=== PATIENT | female | born 1955 | race Caucasian/White ===

== ENCOUNTER 2024-01-27 05:55 | Emergency (ER) | payer MEDICARE, SELFPAY ==
[2024-01-27 05:55] VITALS: BMI 24.2
[2024-01-27 05:57] VITALS: BP 141/84
--- NOTE | 2024-01-27 06:43 | ED.GENMED ---
History of Present Illness
General
Chief Complaint: Musculo-Skeletal Complaint
Source: patient
Exam Limitations: none
Time Seen by Provider: 01/27/24 06:23
Travel History
Have you had any contact with someone who has COVID-19?: No
Do you have any symptoms of coronavirus? Fever > 100 degrees, chills, cough, shortness of breath, sore throat, loss of taste or smell, muscle aches, or headache?: No
History of Present Illness
History of Present Illness:
68-year-old female who presents with pain in the neck radiating down into the right shoulder and right forearm. Patient states that started Sunday. The pain has got worse. Initially it was only with sitting. The patient states she tried to lay
down most of yesterday to rest it. The pain is now much more severe with sitting. No trauma. She has a history of lumbar radiculopathy but had recently had an injection which improved her symptoms. Patient did try taking a tramadol at home and
vomited. She says the pain is mild at this point. No motor weakness. No numbness or tingling.
Past History
Past History
ED Past Medical History: Arrthythmia, HTN and Other (Lumbar radiculopathy)
Social History
Tobacco: Non-smoker
Personal:
Phy Exam
Physical Exam
Physical Exam:
CONSTITUTIONAL Vital signs reviewed, Patient alert and oriented to person, place and time. Well-appearing
HEAD atraumatic, normocephalic.
EYES eyelids normal to inspection, Extraocular muscles intact, Conjunctiva normal, Sclera normal.
NECK normal range of motion, Trachea midline, no jugular venous distention. No midline tenderness. No trapezius tenderness. No paraspinal
RESP no respiratory distress
BACK No obvious deformities
UPPER EXTREMITY Gross Range of motion normal, gross motor strength normal
LOWER EXTREMITY Gross range of motion normal, Gross motor strength normal
NEURO Speech normal, No focal motor deficits include, Summers coma scale 15, Memory normal, Cranial Nerves intact to screening exam. Negative Judy's. No pronator drift
SKIN Skin warm, dry, and normal in color.
PSYCHIATRIC Patient oriented to person place and time, Normal affect.
Course
Orders/Labs/Results
Orders:
Orders
01/27/24 06:43
CR Cervical Spine 2 or 3 Vw Urgent
Reason For Exam: pain with sitting up, pain in RUE
Vital Signs
Initial and Last Documented VS:
Initial Vital Signs
Temp Pulse Resp BP Pulse Ox
97.9 F 68 16 141/84 98
01/27/24 05:57 01/27/24 05:57 01/27/24 05:57 01/27/24 05:57 01/27/24 05:57
Last Documented Vital Signs
Temp Pulse Resp BP Pulse Ox
97.9 F 68 16 141/84 98
01/27/24 05:57 01/27/24 05:57 01/27/24 05:57 01/27/24 05:57 01/27/24 05:57
MDM/Problems Addressed
MDM/Problems Addressed:
Cervical radiculopathy
*Radiology
Radiology exam reviewed: preliminary read by ED provider (Degenerative disease noted. No obvious lytic lesions)
*Pulse Oximetry
Patient hypoxic: no
*Critical Care Note
Total Time (30-74mins, 75-104mins- exclusive of procedures): Not Applicable
Data Reviewed
Prescriptions/Medications Considered But Not Given:
Consider steroids but patient like to await her evaluation by her physician on Sunday
Patient Management
Escalation/DeEscalation of care consider admission/obs:
Cervical radiculopathy noted with no evidence of upper motor neuron disease. Patient has an appoint with her branch service specialist on Sunday and would like to hold off on treatment. Cover with some pain control as needed
ED Attending Note
-
Portions of this chart may have been created with voice recognition software.� Occasional wrong word or��sound alike� substitutions may have occurred due to the inherent limitations of voice recognition software.
Discharge Plan
Departure
Patient Disposition: Home (Routine Discharge)
Date of Disposition: 01/27/24
Time of Disposition: 07:50
Patient with high blood pressure during this ER visit?: Yes
Discharge Problem:
Cervical radiculopathy
Instructions: Radiculopathy (DC), BLOOD PRESSURE
Prescriptions:
New
hydrocodone-acetaminophen 5-325 mg tablet
1 tab PO Q6H PRN (Reason: Pain) Qty: 12 0RF
No Action
diltiazem HCl 180 mg Capsule,Extended Release 24 Hr
180 mg PO DAILY
aspirin 81 mg Tablet,Delayed Release (Dr/Ec)
81 mg PO DAILY
ibuprofen [Motrin] 400 mg Tablet
400 mg PO Q6H PRN (Reason: pain)
ezetimibe 10 mg Tablet
10 mg PO DAILY
hydrochlorothiazide 12.5 mg Tablet
12.5 mg PO DAILY
biotin 2,500 mcg Capsule
2,500 mcg PO DAILY
Centrum Silver Women 8 mg iron-400 mcg-50 mcg Tablet
1 tab PO DAILY
Referrals:
Mikel Medina MD [Family Provider] -
Activity Restrictions/Additional Instructions:
Please see your physician on Sunday as planned. Return for motor weakness, difficulty breathing, fevers or any other concerns.
Interventions
Interventions:
*Risk Screen - Suicide Last Done: 01/27/24 05:57
*General Assessment Last Done: 01/27/24 05:57
*Neglect/Abuse Screening Last Done: 01/27/24 05:57
ED- Fall Risk Assessment Last Done: 01/27/24 06:28
*ED COVID-19 Vaccine History Last Done: 01/27/24 06:28
Discharge Date and Time
Print Language: GEORGIAN
[2024-01-27 08:12] VITALS: BP 140/80
== END 2024-01-27 08:13 | disposition home or self-care (01) ==
LOC: EMR 05:55
PROVIDERS: EMERGENCY PHYSICIAN Emergency Medicine; FAMILY PHYSICIAN Internal Medicine
DX: M54.12 Radiculopathy, cervical region (principal); I10 Essential (primary) hypertension
CPT/HCPCS: 99283; 72040

== ENCOUNTER → 2024-02-20 09:45 | Outpatient (REF) | payer MEDICARE, SELFPAY | LOC: WDC 09:45 | PROVIDERS: ATTENDING PHYSICIAN Obstetrics & Gynecology Gynecology; FAMILY PHYSICIAN Internal Medicine | DX: R92.2 Inconclusive mammogram (principal) | CPT/HCPCS: 76641 ==

== ENCOUNTER → 2024-07-24 14:01 | Outpatient (REF) | payer MEDICARE, SELFPAY | LOC: WDC 14:01 | PROVIDERS: ATTENDING PHYSICIAN Obstetrics & Gynecology Gynecology; FAMILY PHYSICIAN Internal Medicine | DX: Z12.31 Encounter for screening mammogram for malignant neoplasm of breast (principal) | CPT/HCPCS: 77063; 77067 ==

== ENCOUNTER 2024-08-01 03:02 | Inpatient (IN) | payer MEDICARE, SELFPAY ==
[2024-08-01] VITALS (13 sets, daily range): BP systolic 103–145; BP diastolic 70–96; BMI 23.1; BMI 22.8
[2024-08-01 00:54] LABS: % Basophils 0.9 % (0-2); % Immature Granulocytes 0.9 % (0-0.5); % Lymphocytes 46.8 % (20.5-51.1); % Neutrophils 39.4 % (42.2-75.2); Absolute Basophils 0.1 10^3/uL (0-0.2); Absolute Eosinophils 0.2 10^3/uL (0-0.7); Absolute Immature Granulocytes 0.1 10^3/uL (0-0.05); Absolute Lymphocytes 3.7 10^3/uL (1.2-3.4); Absolute Monocytes 0.7 10^3/uL (0.1-0.6); Absolute Neutrophils 3.2 10^3/uL (1.4-6.5); Hematocrit 39.4 % (37.0-47.0); Hemoglobin 13.3 g/dL (12.0-16.0); Mean Corp Hgb Conc. 33.8 g/dL (33.0-37.0); Mean Corpuscular Hgb 30.8 pg (27.0-31.0); Mean Corpuscular Volume 91.2 fL (81.0-99.0); Mean Platelet Volume 9.1 fL (7.4-10.4); Nucleated Red Blood Cells % 0 %; Platelet Count 301 10^3/uL (130-400); Red Blood Cell Count 4.32 10^6/uL (4.20-5.40); Red Cell Dist. Width 11.9 % (11.5-14.5)
--- NOTE | 2024-08-01 00:59 | ED.GENMED ---
History of Present Illness
General
Chief Complaint: Heart Rate Problem
Time Seen by Provider: 08/01/24 00:29
History of Present Illness
History of Present Illness:
Patient presents to the emergency department with palpitations. She has a history of atrial fibrillation. She had 1 episode about 10 years ago. She reports that she was cardioverted out of this. She is not maintained on anticoagulation. Denied
her palpitations started about an hour ago. She feels a heaviness in her chest like something is stuck in her throat. Denies any shortness of breath. Denies any leg swelling.
Past History
Past History
ED Past Medical History: Arrthythmia, HTN and Other (Lumbar radiculopathy)
Social History
Tobacco: Non-smoker
Personal:
Phy Exam
Physical Exam
Physical Exam:
GENERAL APPEARANCE: NAD, well developed/ well nourished
EYES lids/conjunctiva normal
EARS/NOSE/THROAT Mucous membranes moist, uvula midline without oral pharyngeal erythema, exudate or swelling
HEAD/NECK normocephalic atraumatic, neck is supple.
RESPIRATORY respiratory effort normal, speaks in full sentences, no accessory muscle use. Lungs clear to auscultation without rhonchi, wheezes, rales
CARDIAC irregular rate and rhythm. Tachycardic. No edema.
ABDOMINAL Soft, ND/NT.
MUSCLES/EXTREMITIES No abnormal range of motion, no swelling.
SKIN Warm, pink and dry. No rashes
NEUROLOGICAL Speech is clear and appropriate. Normal level of consciousness. 5/5 strength in all extremities.
PSYCH Normal mood and affect. Judgement/competence is appropriate
Course
Orders/Labs/Results
Orders:
Orders
08/01/24 00:27
Electrocardiogram (*1) Urgent
Reason for Study: Atrial Fibrillation
EKG- Treatment ONCE
08/01/24 00:30
Electrocardiogram (*1) Urgent
Reason for Study: Atrial Fibrillation
EKG- Treatment ONCE
08/01/24 00:43
Complete Blood Count/With Diff Urgent
Comprehensive Metabolic Panel Urgent
Troponin I Urgent
08/01/24 00:48
Diltiazem HCl [Cardizem] 15 mg IV NOW STA
CR Chest - 2 Views Urgent
Comment:
Reason For Exam: chest pressure
08/01/24 01:00
Diltiazem 125 mg/125 ml Nss [Cardizem] 125 mg in 125 ml IV PER PROTOCOL
Initial dose in mg/hr, then titrate:: 5
Titrate to keep:: Heart rate 80-100 bpm
Titrate by mg/hr:: 5 mg/hr
Frequency of titrations (minutes):: 15
Maximum dose in mg/hr:: 15
08/01/24 01:04
PTT Urgent
Prothrombin Time Urgent
08/01/24 01:15
Heparin 3,900 units IV NOW STA
Heparin 18277 Units/250 ml 25,000 units in 250 ml IV PER PROTOCOL
Weight to be used for heparin protocol in kilograms (kg):: 65
Protocol:: Cardiac Tx/Acute Coronary
PTT Goal Range to be used:: PTT 73 to 111 seconds
Order type:: Initial
INITIAL Infusion Dose (UNITS/KG/hr) & then follow protocol:: 15 units/kg/hr
Infusion Dose in UNITS/hr & then follow protocol (UNITS/hr):: 1,000
INFUSION RATE in mL/hr & then follow protocol (mL/hr):: 10
PTT less than or equal to 64 seconds:: Increase rate by 200 units/hr (+ 2 mL/hr)
PTT 64.1 to 72.9 seconds:: Increase rate by 100 units/hr (+ 1 mL/hr)
PTT 73 to 111 seconds:: Target Range. No change in rate.
PTT 111.1 to 130.9 seconds:: Decrease rate by 100 units/hr (- 1 mL/hr)
PTT 131 to 199.9 seconds:: HOLD for 1 hr. Then decrease rate by 200 units/hr (- 2 mL/hr)
PTT greater than or equal to 200 seconds:: HOLD for 2 hrs & Notify Provider. Then decrease by 200 units/hr (-
2 mL/hr)
Lab follow-up:: Each change, PTT q6h until 2 consecutive are therapeutic. Then PTT
daily.
08/01/24 01:16
Notify MD As Directed
Notify physician if: Call provider for further orders if PTT is greater than or equal to 200 per heparin
infusion protocol.
Nursing to Place Non Medication Order As Directed
Physician Order: PTT 6 hours after initial start of Heparin infusion
08/01/24 02:00
Flush (0.9% Sodium Chloride) [Flush (Nss)] See Dose Instructions IV PER PROTOCOL
Abnormal Lab Results
08/01/24
00:43
Abs Immat Gran (auto) 0.1 H 10^3/uL
(0-0.05)
Absolute Lymphs (auto) 3.7 H 10^3/uL
(1.2-3.4)
Absolute Monos (auto) 0.7 H 10^3/uL
(0.1-0.6)
Immature Gran % 0.9 H %
(0-0.5)
Neutrophils % 39.4 L %
(42.2-75.2)
Glucose 123 H mg/dl
(70-99)
AST 41 H U/L
(14-36)
08/01/24 00:43
08/01/24 00:43
Vital Signs
Initial and Last Documented VS:
Initial Vital Signs
Temp Pulse Resp BP Pulse Ox
97.9 F 72 18 129/96 99
08/01/24 00:25 08/01/24 00:25 08/01/24 00:25 08/01/24 00:25 08/01/24 00:25
Last Documented Vital Signs
Temp Pulse Resp BP Pulse Ox
97.9 F 87 12 119/74 98
08/01/24 00:25 08/01/24 02:26 08/01/24 02:26 08/01/24 02:00 08/01/24 02:00
*Critical Care Note
Total Time (30-74mins, 75-104mins- exclusive of procedures): Not Applicable
ED Attending Note
ED Attending Note
ED Attending Note:
Patientdiscussed with Dr. Clifford.
patient unsure of when afib started
offered cardioversion but she prefers admission with echo to be safe
-
Portions of this chart may have been created with voice recognition software.� Occasional wrong word or��sound alike� substitutions may have occurred due to the inherent limitations of voice recognition software.
Discharge Plan
Departure
Patient Disposition: Admit
Date of Disposition: 08/01/24
Time of Disposition: 01:36
Presentation/result/management discussed w/ accepting MD/DO: Hospitalist
Discharge Problem:
Atrial fibrillation
Prescriptions:
No Action
diltiazem HCl 180 mg Capsule,Extended Release 24 Hr
180 mg PO DAILY
aspirin 81 mg Tablet,Delayed Release (Dr/Ec)
81 mg PO DAILY
ibuprofen [Motrin] 400 mg Tablet
400 mg PO Q6H PRN (Reason: pain)
ezetimibe 10 mg Tablet
10 mg PO DAILY
hydrochlorothiazide 12.5 mg Tablet
12.5 mg PO DAILY
biotin 2,500 mcg Capsule
2,500 mcg PO DAILY
Centrum Silver Women 8 mg iron-400 mcg-50 mcg Tablet
1 tab PO DAILY
hydrocodone-acetaminophen 5-325 mg tablet
1 tab PO Q6H PRN (Reason: Pain) Qty: 12 0RF
Referrals:
Mikel Medina MD [Family Provider] -
Interventions
Interventions:
*Risk Screen - Suicide Last Done: 08/01/24 00:25
*General Assessment Last Done: 08/01/24 00:25
*Neglect/Abuse Screening Last Done: 08/01/24 00:25
ED- Fall Risk Assessment Last Done: 08/01/24 00:56
*ED COVID-19 Vaccine History Last Done: 08/01/24 00:25
ED- Cardiac Assessment Last Done: 08/01/24 00:58
ED- Pulmonary Assessment Last Done: 08/01/24 00:56
Discharge Date and Time
Print Language: PASHTO
[2024-08-01] MEDS: CARDIZEM 15 MG IV (01:01)
[2024-08-01 01:13] LABS: Troponin I < 0.012 ng/ml
[2024-08-01 01:18] LABS: ALT (SGPT) 33 U/L (0-35); AST (SGOT) 41 U/L (14-36); Albumin 4.4 g/dl (3.5-5.0); Alkaline Phosphatase 95 U/L (38-126); Blood Urea Nitrogen 15 mg/dl (7-17); Calcium 9.8 mg/dl (8.4-10.2); Carbon Dioxide 25 mmol/L (22-30); Chloride 101 mmol/L (98-107); Estimated Creatinine Clearance 83 ml/min; Glucose 123 mg/dl (70-99); Potassium 3.6 mmol/L (3.5-5.1); Sodium 138 mmol/L (135-145); Total Bilirubin 0.5 mg/dl (0.2-1.3); Total Protein 7.3 g/dl (6.3-8.2); eGFR > 60.00
[2024-08-01 01:21] LABS: INR 0.95; PT 13.2 Sec (11.4-14.6)
[2024-08-01 01:22] LABS: APTT 29.9 Sec (23.4-35.0)
[2024-08-01] MEDS: CARDIZEM 125 IV (01:45)
[2024-08-01] MEDS: HEPARIN 3900 UNITS IV (02:02)
[2024-08-01] MEDS: HEPARIN 25000 UNITS/250 ML IV (02:10)
--- NOTE | 2024-08-01 02:17 | HPS.HSE ---
Family Physician
-
Family Physician: Mikel Medina
Chief Complaint
-
Palpitations and elevated heart rate
History of Present Illness
This is a 69-year-old female with a past medical history of cervical disc disease, hypertension, paroxysmal atrial fibrillation on not currently on any anticoagulation presents to the emergency department with rapid atrial fibrillation.
Patient was diagnosed with paroxysmal atrial fibrillation about 10 years ago. She reported that she had a symptomatic episode only at 1 time and has been asymptomatic since. Patient was very clear that onset of symptoms was around 11 AM while
trying to go to bed. She reports having chest pounding and mid midsternal chest discomfort. She denies shortness of breath, diaphoresis, lightheadedness or dizziness. By the time I saw her in the ED symptoms had resolved although she was in A-fib
with controlled rates.
Patient reports she has been on diltiazem 180 mg for the last 6 months. She reports that about a week ago she had a upper respiratory infection that persisted for several days. She took Sudafed once and also NyQuil about once. She reported that
this resulted in a cough for a few days as well as rhinorrhea but the last 2 days she has been asymptomatic. She denies having any fevers or chills.
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 She does not straight cath. She is follows with urology and is on regiment of continued fluid intake that
circulates the bladder content and prevention of urinary tract infection. She denies having any symptoms of urinary tract infection currently.
In the Emergency Department she was afebrile, blood pressure was stable at 120/87, pulse was 120, ECG shows atrial fibrillation at a rate of 124 without any acute ischemic changes. Troponin was negative. CBC was unremarkable. Likewise chemistries
BUN/creatinine were within normal limits and unremarkable. Patient offered cardioversion in the ED given acute onset of symptoms but she deferred for evaluation of LV thrombus prior to cardioversion.
Medical History
Past Medical History
Past Medical History: Reports Arrhythmia (Proximal atrial fibrillation) and HTN
Additional Past Medical History:
Chronic dystonic bladder�carries 900 cc of urine in the bladder continuously
Degenerative disc disease of the spine/spinal stenosis
Past Surgical History: Reports Gynocological
Social History
Tobacco: Non-smoker
Alcohol: Occasional
Drug: None
Personal:
Living: With Family
Family History
Family History: Not pertinent
Allergies / Home Medications
Allergies reflects when Allergies were last updated in [employer].
Home Medications with original date entered in [employer]
Allergy/Medication List:
Allergies
Allergy/AdvReac Type Severity Reaction Status Date / Time
morphine Allergy Nausea / Verified 06/10/14 07:42
Vomiting
Home Medications
aspirin 81 mg tablet,delayed release 81 mg PO DAILY 01/27/24
biotin 2,500 mcg capsule 2,500 mcg PO DAILY 01/27/24
diltiazem HCl 180 mg capsule,24 hr,extended release 180 mg PO DAILY 01/27/24
ezetimibe 10 mg tablet 10 mg PO DAILY 01/27/24
hydrochlorothiazide 12.5 mg tablet 12.5 mg PO DAILY 01/27/24
hydrocodone 5 mg-acetaminophen 325 mg tablet 1 tab PO Q6H PRN Pain #12 tabs 01/27/24
ibuprofen 400 mg tablet 400 mg PO Q6H PRN pain 01/27/24
jbufvlyh-pnbf-prxr 8 mg-folic 400 mcg-K 50 mcg-lutein 300 mcg tablet (Centrum Silver Women) 1 tab PO DAILY 01/27/24
Review of Systems
-
Constitutional: Reports No Symptoms
EENT: Reports No Symptoms
Respiratory: Reports No Symptoms
Cardiac: Reports Palpitations
Abdomen/GI: Reports No Symptoms
: Reports No Symptoms
Musculoskeletal: Reports No Symptoms
Skin: Reports No Symptoms
Neurological: Reports No Symptoms
Endocrine: Reports No Symptoms
Hematologic/Lymphatic: Reports No Symptoms
Psych: Reports No Symptoms
Physical Exam
Vital Signs
Vital Signs
Temp Pulse Resp BP Pulse Ox
97.9 F 120 14 121/87 99
08/01/24 00:25 08/01/24 01:01 08/01/24 01:00 08/01/24 01:01 08/01/24 00:56
Physical Exam
General: Well Developed, Well Nourished, No Apparent Distress and Comfortable
HEENT: NormoCephalic, Anicteric, Moist mucous membranes and Atraumatic
Respiratory: Clear
Cardiac: S1/S2 and Irregular Rhythm
Breast: Deferred by me
GI: Soft, Non Tender, Non Distended and Normal Bowel Sounds
Rectal: Deferred by Provider
Genito-urinary: Deferred by me
Musculoskeletal: No Clubbing, No Cyanosis and No Edema
Skin: Warm
Neuro: AO x 3
Hematologic/Lymphatic: No Lymphadenopathy
Psych: Calm
Laboratory Results
-
08/01/24 00:43
08/01/24 00:43
Laboratory Results
PT 13.2 Sec (11.4-14.6) 08/01/24 01:04
INR 0.95 08/01/24 01:04
APTT 29.9 Sec (23.4-35.0) 08/01/24 01:04
Total Bilirubin 0.5 mg/dl (0.2-1.3) 08/01/24 00:43
AST 41 U/L (14-36) H 08/01/24 00:43
ALT 33 U/L (0-35) 08/01/24 00:43
Alkaline Phosphatase 95 U/L (38-126) 08/01/24 00:43
Troponin I < 0.012 ng/ml 08/01/24 00:43
Data Reviewed
-
Medical Tests (Nuc Med, Echo, EKG etc): Image Personally Visualized and interpreted
Lab Data: Labs Reviewed by me
Old Records: Reviewed
Impression/Plan
-
IMPRESSION:
PLAN:
1. Paroxysmal Atrial Fibrillation -A-fib with rapid ventricular rhythm. Symptomatic went fast but patient is asymptomatic when rate controlled on a diltiazem drip. Unclear duration of irregular rhythm but given history of paroxysmal atrial
fibrillation and current symptom profile it is likely that she has been in and out of atrial fibrillation for some time and not just < 48 hours. She had not been on anticoagulation since she has been asymptomatic and she was diagnosed 10 years ago
when she did not meet criteria for mandatory anticoagulation. She was placed on asa 81.
- admit to telemetry
- NPO for now pending possible cardioversion
- [id number] now 3.
- on heparin gtt per ED
- alternatively offered AC and later cardioversion as he is asymptomatic with controlled rate
- on diltiazem gtt with rate control, consider increase diltiazem to 240 daily pending cardiology eval,
- check TSH
- echo in am
- cardiology consultation
DVT PPX - on heparin gtt
Code Status - Full Code
--- NOTE | 2024-08-01 06:23 | PTCARENOTE ---
Pt admitted to room 2255. Pt AAOx3 AFIb on monitor. Denies pain or any discomfort. ambulates independently in the room. Oriented to room
[2024-08-01] MEDS: ORETIC 12.5 MG PO (07:23)
[2024-08-01] MEDS: ZETIA 10 MG PO (07:23)
[2024-08-01 08:02] LABS: APTT 116.5 Sec (23.4-35.0)
--- NOTE | 2024-08-01 08:51 | CON.CAR ---
Consultation
Consultation Request
Date/Time Consultation Requested: 08/01/24, 430am
Date/Time Consultation Performed: 08/01/24, 730am
Requesting Provider: Nishi
Performing Provider: Michelle
Reason for Consultation: A fib with RVR
Medical History
-
Chief Complaint: palpitations
History of Present Illness:
69 yo female with PMH of paroxysmal A fib, not on OAC, HTN, mitral valve prolapse, mild MR, hyperlipidemia is admitted with A fib with RVR.
She had an episode of A fib approx 12 years ago. None since and not on OAC as outpatient.
Yesterday, she felt onset of palps, chest/throat tightness. Symptoms persisted so she presented to ED and was found to be in A fib with RVR.
Past Medical History
Past Medical History: Arrhythmias (paroxysmal A fib), HTN, Hypercholesterolemia, Valvular Disease (mitral valve prolapse) and Other (dystonic bladder)
Past Surgical History: Orthopedic
Social History
Tobacco: Non-Smoker
Family History
Family History: Early CAD (none)
Allergies / Home Medications
Allergy/AdvReac Type Severity Reaction Status Date / Time
morphine Allergy Nausea / Verified 06/10/14 07:42
Vomiting
�Medication �Instructions �Recorded �Confirmed �Type
aspirin 81 mg tablet,delayed 81 mg PO DAILY 01/27/24 08/01/24 History
release
biotin 2,500 mcg capsule 2,500 mcg PO DAILY 01/27/24 08/01/24 History
diltiazem HCl 180 mg capsule,24 180 mg PO DAILY 01/27/24 08/01/24 History
hr,extended release
ezetimibe 10 mg tablet 10 mg PO DAILY 01/27/24 08/01/24 History
hydrochlorothiazide 12.5 mg tablet 12.5 mg PO DAILY 01/27/24 08/01/24 History
hydrocodone 5 mg-acetaminophen 325 1 tab PO Q6H PRN Pain #12 tabs 01/27/24 08/01/24 Rx
mg tablet
vjfcbthr-lvye-byml 8 mg-folic 400 1 tab PO DAILY 01/27/24 08/01/24 History
mcg-K 50 mcg-lutein 300 mcg tablet
(Centrum Silver Women)
acetaminophen 325 mg tablet 650 mg PO Q8 PRN pain 08/01/24 08/01/24 History
(Tylenol)
Review of Systems
-
History Source: Patient
All other systems: Negative unless noted
Cardiac: Palpitations
Physical Exam
Vital Signs
Temp Pulse Resp BP Pulse Ox
98.2 F 93 16 113/73 100
08/01/24 07:21 08/01/24 07:30 08/01/24 07:21 08/01/24 07:21 08/01/24 07:45
Lab Results
08/01/24 00:43
08/01/24 00:43
Troponin I < 0.012 ng/ml 08/01/24 00:43
Physical Exam
General: Well Developed, Well Nourished and No Apparent Distress
HEENT: Normocephalic and Anicteric
Respiratory: Clear and Non Labored Respirations
Cardiac: S1/S2 (normal), Irregular Rhythm, Murmur (II/ systolic murmur at apex), Peripheral Edema (none) and JVD (none)
GI: Soft and Non Tender
Musculoskeletal: Clubbing, No Cyanosis and No Edema
Skin: Warm and Dry
Neuro: AO x 3
Psych: Calm
Impression / Plan
-
69 yo female with PMH of paroxysmal A fib, not on OAC, HTN, mitral valve prolapse, mild MR, hyperlipidemia is admitted with A fib with RVR.
# A fib with RVR
-symptomatic, requiring admission
-not OAC as outpatient, with last episode 12 years prior
-rate is better on diltiazem drip (which requires monitoring of tele): based on HR/BP once back in sinus, will assess to increase outpatient diltiazem from 180mg to 240mg daily
-CHADS2-VASC =3. Transition to eliquis 5mg bid, and plan for lobsterman eliquis (case mgmt consulted)
-stop ASA
-we discussed rhythm control, and will proceed with PIPER/DCCV today
-we discussed topic of PVI as outpatient: she will think about it
# Mitral valve prolapse, mild MR
-per echo 2022
-MR murmur on exam
-PIPER today
# HTN
-cont HCTZ and diltiazem
# Hyperlipidemia
-cont zetia
Data Reviewed
-
EKG: Tracing Personally Visualized and interpreted (A fib with RVR) and Other (Tele: A fib, HR 80s on diltiazem drip)
Medical Tests (Nuc Med, Echo etc): Report Reviewed by me (echo 10/27/22: EF 65-70%, posterior MV prolapse with mild MR)
Labs: Labs Reviewed by me
Old Records: Reviewed
[2024-08-01] MEDS: ELIQUIS 5 MG PO (09:04)
--- NOTE | 2024-08-01 09:11 | PTCARENOTE ---
Heparin d/c per provider order. Eliquis administered.
[2024-08-01 09:24] LABS: TSH Reflex To Free T4 1.37 uIU/ml (0.47-4.68)
--- NOTE | 2024-08-01 11:24 | CM ---
Reviewed chart. Met with and Mrs. Gill to review discharge plans. She states prior to admission she resides with her spouse in a two story home with three steps to enter. She states she has a first floor set-up. She states prior to
admission she was independent with ambulation and adls. She states she does not have any DME in the home. She states she has a prescription plan with [facility] and uses [facility]. Telephone call to [facility] to check on co-pay for Eliquis 5 mg
po bid. Her first script would be $485.62 because she has a $466.00 left on her deductible. Her second month co-pay would be $136.00 a month. Eliquis is a Tier 3 medication so she will pay 25% of the cost of the medication. Placed the one month
free coupon in her red discharge folder. Telephone call to [facility] to see if they have Eliquis 5 mg po bid in stock. [facility] states they have Eliquis in stock. Medical work-up in progress. The discharge plan is to return home with her
spouse when medically stable.
[2024-08-01 12:10] LABS: Hepatitis C Antibody Negative (Negative)
--- NOTE | 2024-08-01 13:45 | W.PN.HOSP.TC ---
Addendum entered and electronically signed by Red Huber MD 08/01/24 16:37:
HTN
Addendum entered and electronically signed by Red Huber MD 08/01/24 16:35:
Spoke with cardiology. Patient converted from normal sinus rhythm before cardioversion. Cardiology increased Cardizem to 240 mg p.o. daily. Echocardiogram with EF 60 to 65%. Moderate to severe mitral regurgitation. Patient will follow with
cardiology outpatient. Discharge today
Time of discharge 37 minutes
Original Note:
Today's Communication/Plan
-
Monitor vital signs see plan
Continue Cardizem drip
Continue Eliquis
Plan for cardioversion
Nonbillable note
Assessment / Plan
Assessment / Plan
General: Well Developed, Well Nourished, No Apparent Distress and Comfortable
HEENT: NormoCephalic, Anicteric, Moist mucous membranes and Atraumatic
Respiratory: Clear
Cardiac: S1/S2 and Irregular Rhythm
Breast: Deferred by me
GI: Soft, Non Tender, Non Distended and Normal Bowel Sounds
Musculoskeletal: No Edema
Neuro: AO x 3
Psych: Calm
A-fib with rapid ventricular rhythm
hx of paroxysmal A-fib around 10 years ago, not on any anticoagulation on admission
Symptomatic went fast but patient is asymptomatic when rate controlled on a diltiazem drip. Unclear duration of irregular rhythm but given history of paroxysmal atrial fibrillation and current symptom profile it is likely that she has been in and
out of atrial fibrillation for some time and not just < 48 hours. She had not been on anticoagulation since she has been asymptomatic and she was diagnosed 10 years ago when she did not meet criteria for mandatory anticoagulation. She was placed
on asa 81.
- NPO for now pending possible cardioversion
- [id number] now 3. started AC
- on diltiazem gtt with rate control
TSH 1.3
- echo
- cardiology following
HLD
on HCTZ
HLD
Lumbar radiculopathy
DVT PPX - eliquis
Code Status - Full Code
Anticipated Discharge: Within 24 hours
Subjective/Interval History
-
Date of Service: August 01, 2024
denies pain
Objective Data
-
Labs:
Laboratory Results
08/01/24 08/01/24
07:30 14:30
APTT 116.5 H Cancelled
Vital Signs:
Vital Signs
Temp Pulse Resp BP Pulse Ox
98.1 F 95 16 120/82 99
08/01/24 10:37 08/01/24 11:30 08/01/24 10:37 08/01/24 10:36 08/01/24 10:37
--- NOTE | 2024-08-01 14:07 | W.PN.UPDATE ---
Update Note
Progress Note Update
patient is back in sinus on diltiazem drip. transition to PO diltiazem 240mg daily. TTE prior to d.c.
[2024-08-01] MEDS: CARDIZEM CD 240 MG PO (15:37)
--- NOTE | 2024-08-01 16:29 | W.DCSUMMARY ---
Discharge Summary
Discharge Data
Date of Admission: 08/01/24
Date of Discharge: 08/01/24
-
Pending Results: No
Hospital Course
69-year-old female with past medical history of atrial fibrillation, hyperlipidemia, hypertension, lumbar radiculopathy came to the hospital with chest discomfort known to have atrial fibrillation with RVR. Patient was initially started on Cardizem
drip. Luis A Vascor was 3 so she was also started on heparin drip. Before she was taken for cardioversion she converted back to normal sinus rhythm. She was then started on Eliquis along with oral Cardizem. Echocardiogram showed EF of 60 to 65%
with moderate to severe mitral regurgitation. She was instructed to follow-up with cardiology outpatient. Since she started feeling better, she was then discharged home with instructions to follow-up with all her physicians outpatient.
Discharge Plan
-
Patient Disposition: Home (Routine Discharge)
Discharge Diagnosis/Procedures: Atrial fibrillation with rapid ventricular rate
Condition: Fair
Diet: As tolerated
Activity: As tolerated
Driving Restrictions: As prior to admission
Bathing Restrictions: None
Referrals:
Thomas Martinez MD [Active] -
Mikel Medina MD [Family Provider] - in less than 1 week
Prescriptions:
New
Eliquis 5 mg Tablet
5 mg PO BID Qty: 60 0RF
diltiazem HCl 240 mg Capsule,Extended Release 24hr
240 mg PO DAILY Qty: 30 0RF
Continued
ezetimibe 10 mg Tablet
10 mg PO DAILY
hydrochlorothiazide 12.5 mg Tablet
12.5 mg PO DAILY
biotin 2,500 mcg Capsule
2,500 mcg PO DAILY
Centrum Silver Women 8 mg iron-400 mcg-50 mcg Tablet
1 tab PO DAILY
hydrocodone-acetaminophen 5-325 mg tablet
1 tab PO Q6H PRN (Reason: Pain) Qty: 12 0RF
acetaminophen [Tylenol] 325 mg Tablet
650 mg PO Q8 PRN (Reason: pain)
Discontinued
diltiazem HCl 180 mg Capsule,Extended Release 24 Hr
180 mg PO DAILY
aspirin 81 mg Tablet,Delayed Release (Dr/Ec)
81 mg PO DAILY
Discharge Orders:
Discharge Patient (As Directed); Ordered 08/01/24
Ordered By: Red Huber
Care Plan Goals
Care Plan Goals:
Problem: Readiness for enhanced knowledge related to diagnosis and treatment plan
Goal: Understand your diagnosis and treatment plan needs, including medications if applicable.
Instructions: Know your diagnosis, underlying causes and treatment plan options, including medications if applicable. Consult with your health care team to learn about your diagnosis and treatment plan, including medications if applicable.
Discharge Date and Time
Discharge Date/Time: 08/01/24 17:36
Print Language: SINHALA
--- NOTE | 2024-08-01 17:34 | PTCARENOTE ---
Tele and IV removed. Discharge instructions reviewed w/ pt and spouse. Verbalizes understanding. Escorted w/ staff assist via wheelchair. Discharged to home w/ spouse.
== END 2024-08-01 17:36 | disposition home or self-care (01) | DRG 310 ==
LOC: IVU 03:02
PROVIDERS: ADMITTING PHYSICIAN Internal Medicine; ATTENDING PHYSICIAN Internal Medicine; EMERGENCY PHYSICIAN Emergency Medicine; FAMILY PHYSICIAN Internal Medicine; OTHER PHYSICIAN Internal Medicine
DX: I48.91 Unspecified atrial fibrillation (principal); I10 Essential (primary) hypertension; I34.1 Nonrheumatic mitral (valve) prolapse; Q64.79 Other congenital malformations of bladder and urethra; R33.8 Other retention of urine; E78.00 Pure hypercholesterolemia, unspecified; Z88.5 Allergy status to narcotic agent; Z79.899 Other long term (current) drug therapy; Z79.82 Long term (current) use of aspirin
CPT/HCPCS: 71046; 80053; 84443; 84484; 85025; 85610; 85730; 86803; 93005; 93306; 96365; 96366; 96375; 99285

== ENCOUNTER 2024-08-19 07:50 | Day surgery (SDC) | payer MEDICARE, SELFPAY ==
[2024-08-19 08:33] VITALS: BMI 22.9
== END 2024-08-19 10:15 | disposition home or self-care (01) ==
LOC: CATH 07:50
PROVIDERS: ATTENDING PHYSICIAN Internal Medicine Cardiovascular Disease; FAMILY PHYSICIAN Internal Medicine; OTHER PHYSICIAN Internal Medicine
DX: I08.3 Combined rheumatic disorders of mitral, aortic and tricuspid valves (principal); I48.0 Paroxysmal atrial fibrillation; I10 Essential (primary) hypertension; Z79.82 Long term (current) use of aspirin; Z79.01 Long term (current) use of anticoagulants; Z79.899 Other long term (current) drug therapy
CPT/HCPCS: 93312; 93320; 93325

== ENCOUNTER → 2024-09-19 10:58 | Outpatient (REF) | payer MEDICARE, SELFPAY | LOC: RCS 10:58 | PROVIDERS: ATTENDING PHYSICIAN Internal Medicine | DX: I48.0 Paroxysmal atrial fibrillation (principal); R00.2 Palpitations | CPT/HCPCS: 93225; 93226 ==

== ENCOUNTER → 2024-11-18 10:56 | Outpatient (REF) | payer MEDICARE, SELFPAY | LOC: HWRAD 10:56 | PROVIDERS: ATTENDING PHYSICIAN Surgery; FAMILY PHYSICIAN Internal Medicine | DX: N31.9 Neuromuscular dysfunction of bladder, unspecified (principal) | CPT/HCPCS: 76770 ==

== ENCOUNTER → 2025-02-24 12:47 | Outpatient (REF) | payer MEDICARE, SELFPAY | LOC: WDC 12:47 | PROVIDERS: ATTENDING PHYSICIAN Obstetrics & Gynecology Gynecology; FAMILY PHYSICIAN Internal Medicine | DX: R92.2 Inconclusive mammogram (principal); Z80.3 Family history of malignant neoplasm of breast | CPT/HCPCS: 76641 ==

== ENCOUNTER → 2025-07-02 11:17 | Outpatient (REF) | payer MEDICARE, SELFPAY | LOC: HWRCS 11:17 | PROVIDERS: ATTENDING PHYSICIAN Internal Medicine; FAMILY PHYSICIAN Internal Medicine | DX: I34.0 Nonrheumatic mitral (valve) insufficiency (principal); I48.0 Paroxysmal atrial fibrillation; I10 Essential (primary) hypertension | CPT/HCPCS: 93306 ==

== ENCOUNTER → 2025-07-28 16:05 | Outpatient (REF) | payer MEDICARE, SELFPAY | LOC: WDC 16:05 | PROVIDERS: ATTENDING PHYSICIAN Internal Medicine | DX: Z12.31 Encounter for screening mammogram for malignant neoplasm of breast (principal); Z80.3 Family history of malignant neoplasm of breast | CPT/HCPCS: 77063; 77067 ==